=== PATIENT | male | born 1970 ===

== ENCOUNTER 2021-06-03 03:37 | Emergency (ER) | payer SELFPAY ==
[~2021-06-03] VITALS: Ht 170.2 cm; Wt 85.0 kg
--- NOTE | 2021-06-03 03:48 | NUR ---
PT BIB [facility] TO [facility], AFTER PT PICKED UP BY [facility], AND [facility] MENTIONS THAT PT WAS BELLIGERANT IN THE FIELD, VERY LOUD AND TALKING BACK, UNTIL HE GOT ARRESTED, THEN SAID HE HAD SWALLOWED A GRAM OF HEROIN WITHOUT A BAGGY. PT AT THIS TIME, CALM, QUIET, BUT RESPONDS TO ALL QUESTIONS. PT ON CR MONITOR AND SIDERAILS UP X2, [employer] OFFICER AT BEDSIDE.
[2021-06-03 04:29] VITALS: BP 104/72
[2021-06-03] MEDS ORDERED: NALOXONE 1 MG/ML, 2ML ONE (04:41)
--- NOTE | 2021-06-03 04:55 | NUR ---
PT MEDICATED PER MD ORDER, SEE EMAR, AND GIVEN 1 MG OF NARCAN IM, TO LEFT DELTOID. PT TOLERATED WELL. NO CHANGE IN PT STATUS AFTER MED. PT AWAKENS EASILY AND SPONTANEOUSLY. PT ANSWERS QUESTIONS, IN A HUSHED MANNER, BUT ANSWERS AND IS A&OX4. F/U AND D/C INSTRUCTIONS AND MEDICALLY CLEARED FOR PENITENTIARY PAPERS WERE PROVIDED TO THE PT, AND HELD BY D. PT AMBULATED OUT DOOR IN [employer] CUSTODY. AIRWAY INTACT, GOOD AERATION AND OXYGENATION.
[2021-06-03] MEDS ORDERED: NALOXONE 1 MG/ML, 2ML IM ONE (05:00)
== END 2021-06-03 05:32 ==
LOC: ED 05:26
DX: F11.129 Opioid abuse with intoxication, unspecified (principal); F15.129 Other stimulant abuse with intoxication, unspecified; Z72.9 Problem related to lifestyle, unspecified
CPT/HCPCS: 96372; 99283; J2310